=== PATIENT | male | born 1940 | race Caucasian/White ===

== ENCOUNTER 2017-07-10 08:22 | Day surgery (SDC) | payer MEDICARE, BC ==
[2017-07-10] MEDS ORDERED: CEFAZOLIN 2 Gram 2 GM/50 ML BAG IVPB ONE (08:23)
[2017-07-10] MEDS ORDERED: ACETAMINOPHEN 1,000 MG/100 ML BTL IV ONE (08:23)
[2017-07-10] MEDS ORDERED: SEVOFLURANE 250 ML INH ONE (08:23)
[2017-07-10] MEDS ORDERED: LIDOCAINE 2% MDV (20MG/ML) 20ML VIAL IV ONE (08:23)
[2017-07-10] MEDS ORDERED: KETOROLAC 30 MG/ML VIAL IVP ONE (08:23)
[2017-07-10] MEDS ORDERED: PROPOFOL 10 MG/ML VIAL IV ONE (08:23)
[2017-07-10] MEDS ORDERED: BUPIVACAINE 0.25% W/EPI MPF 30ML VIAL IVP ONE (08:23)
--- NOTE | 2017-07-11 10:30 | Operative Note ---
DATE OF SURGERY: 07/10/2017 Surgeon: Roberto Carlos Hansen DO PREOPERATIVE DIAGNOSES: 1. Torn medial meniscus of the left knee. 2. Chondromalacia of the left knee. OPERATION: 1. Arthroscopic partial medial meniscectomy, left knee. 2. Arthroscopic chondroplasty of the trochlea, left knee. DESCRIPTION OF PROCEDURE: This 76-year-old male was taken to the operating room and placed in the supine position on the operating room table were general anesthesia was induced. The left lower extremity was elevated. It was exsanguinated and the tourniquet inflated to 300 mmHg. Arthroscopic knee willingham applied. The left knee prepped with Hibiclens and draped in the usual sterile fashion. An inferolateral portal was established for the 4 mm arthroscope. Initial evaluation of the joint demonstrated normal appearance of the suprapatellar pouch. 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 This lesion was about 2 x 1.5 cm. This was a severe grade 3 damage. Chondroplasty was performed to stabilize the loops flaps of articular cartilage in the trochlea and then it was re-probed and confirmed to be stable. The medial compartment was entered and the medial femoral condyle appeared nl. Most of the meniscus appeared normal except for a vertical tear of the root of the meniscus. Utilizing the basket forceps, we resected unstable fragments of this root and then smoothed and contoured with the rotating shaver. We re-probed it and it appeared to be entirely stable. The intracondylar notch was examined and found to be normal. The lateral compartment was entered and probing of the lateral compartment did not reveal any pathology with a normal lateral meniscus and normal articular cartilage in the lateral compartment. The joint was copiously irrigated and suctioned. The instruments were removed. The portals infiltrated with 0.25% Marcaine with epinephrine. Sterile dressings applied. Tourniquet and knee willingham released. The patient was taken to the recovery room in satisfactory condition. GROSS PATHOLOGY: This patient had a grade 3 lesion of the articular cartilage in the trochlea being about 2 x 1.5 cm. In addition, a root tear of the posterior horn of the medial meniscus was present. This was resected and found to be stable. CC: JOHNSON Cisneros
== END 2017-07-10 12:00 | disposition home or self-care (01) ==
LOC: SUR 08:22
PROVIDERS: ATTEND Orthopaedic Surgery
DX: M23.222 Derangement of posterior horn of medial meniscus due to old tear or injury, left knee (principal); I10 Essential (primary) hypertension; I48.91 Unspecified atrial fibrillation; Z79.01 Long term (current) use of anticoagulants; Z95.2 Presence of prosthetic heart valve; Z72.0 Tobacco use
CPT/HCPCS: 29881; 01400; J1885; J0690

== ENCOUNTER 2018-05-07 13:56 | Emergency (ER) | payer MEDICARE ==
--- NOTE | 2018-05-07 14:29 | Emergency Department Record ---
History of Present Illness - General Chief Complaint: Slurred speech Stated Complaint: THINKS HAD A STOKE Time Seen by Provider: 05/07/18 14:14 Source: Patient Mode of Arrival: Ambulatory Limitations: No limitations - History of Present Illness Initial Comments: The patient is here due to a 21 hour hx of L facial drooping and slightly slurred speech since yesterday. He also has had mild visual changes at times but denies any arm or leg numbness, weakness or any balance issues. The patient is on Xarelto for cardiac conditions and does have a hx of CAD and HTN. Onset/Timin -: Days(s) Place: Home Severity: Mild - [place] Coma Scale Eye Response: (4) Open spontaneously Motor Response: (6) Obeys commands Verbal Response: (5) Oriented [place] Total: 15 - Symptoms of Stroke Onset of Symptoms Date: 05/06/18 Onset of Symptoms Time: 16:30 Symptom Onset Unknown: No Symptoms of stroke: Slurred Speech - Related Data Allergies/Adverse Reactions: Allergies Allergy/AdvReac Type Severity Reaction Status Date / Time No Known Allergies Allergy HYPERSENSIT Verified 05/07/18 14:09 IVITY Travel Screening - Travel/Exposure Within Last 30 Days Have you traveled within the last 30 days?: No - Travel/Exposure Within Last Year Have you traveled outside the [place] in the last year?: No - Additonal Travel Details Have you been exposed to anyone with a communicable illness?: No - Travel Symptoms Symptom Screening: None Review of Systems Constitutional: Denies: Chills, Fever Eyes: Denies: Eye discharge ENT: Denies: Congestion Respiratory: Denies: Cough, Dyspnea Cardiovascular: Denies: Arrhythmia, Chest pain Endocrine: Denies: Fatigue Gastrointestinal: Denies: Diarrhea, Vomiting Genitourinary: Denies: Dysuria Musculoskeletal: Denies: Arthralgia Past Medical History - SOCIAL HISTORY Smoking Status: Current every day smoker Alcohol Use: None Drug Use: None - RESPIRATORY Hx Respiratory Disorders: Yes Comment:: Smoker 1ppd x 60 years, SOB w/ strenous activity, running - CARDIOVASCULAR Hx Cardio Disorders: Yes Hx Abnormal EKG: Yes (Atrial fib on Xarelto) Hx Hypertension: Yes (Controlled with meds) 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 - NEURO Hx Neuro Disorders: Yes Hx Headaches: Yes (occasional) - GI Hx GI Disorders: No - Hx Genitourinary Disorders: Yes Hx Bladder Problem: Yes (Frequency) - ENDOCRINE Hx Endocrine Disorders: No - MUSCULOSKELETAL Hx Musculoskeletal Disorders: Yes Hx Arthritis: Yes (shoulders) - PSYCH Hx Psych Problems: No - HEMATOLOGY/ONCOLOGY Hx Hematology/Oncology Disorders: No Family Medical History Any Significant Family History?: Yes Hx Cancer: Father, Mother, Brother/Sister, Grandparents Hx Stroke: Grandparents Physical Exam - General General Appearance: Alert, Oriented x3, Cooperative, No acute distress - Head Head exam: Atraumatic, Normocephalic, Normal inspection - Eye Eye exam: Normal appearance, PERRL, EOMI - ENT Throat exam: Normal inspection. negative: Tonsillar erythema, Tonsillar exudate - Neck Neck exam: Normal inspection, Full ROM. negative: Tenderness - Respiratory Respiratory exam: Normal lung sounds bilaterally. negative: Respiratory distress - Cardiovascular Cardiovascular Exam: Regular rate, Normal rhythm, Normal heart sounds - GI/Abdominal GI/Abdominal exam: Soft, Normal bowel sounds. negative: Tenderness - Extremities Extremities exam: Normal inspection, Full ROM, Normal capillary refill. negative: Tenderness - Neurological Neurological exam: Alert, Motor sensory deficit (There is a mild L facial droop and mild dysarthria.), Normal gait, Oriented X3, Other (Neg Drift and Rhomberg exams.). negative: Abnormal gait, Altered - Skin Skin exam: negative: Rash Course Vital Signs 05/07/18 14:03 Temperature 98.2 F Pulse Rate 81 Respiratory 16 Rate Blood Pressure 145/94 Pulse Ox 95 - Reevaluation(s) Reevaluation #1: The patient is doing very well at this time. He denies any new symptoms and clearly has had no arm or leg numbness or weakness. I did discuss the case with Dr. Thao at [facility] and he does accept the patient as a direct admission to [facility]. 05/07/18 15:52 Medical Decision Making - Data Complexity MDM Data: Labs Ordered and/or Reviewed, X-Ray Ordered and/or Reviewed, EKG Ordered and/or Reviewed - Lab Data Result diagrams: 05/07/18 14:50 05/07/18 14:50 - EKG Data -: EKG Interpreted by Me EKG: No Acute Changes, Unchanged From Previous - Radiology Data Radiology results: Report reviewed (Head CT: Neg per Rad.) Disposition Disposition: Transfer Clinical Impression: Facial droop Disposition: Acute Care Hospital Transfer Transfer To: [facility] Reason For Transfer: Stroke team Accepting Physician: Master Time Discussed w/Accepting Physician: 15:53 Condition: (2) Stable Forms: Patient Portal Access Time of Disposition: 15:53 Quality - Quality Measures Quality Measures: N/A - Blood Pressure Screening View Details: Yes Does Patient Have Any of the Following: Active Dx of HTN Blood Pressure Classification: Hypertensive Reading Systolic Measurement: 145 Diastolic Measurement: 94 Screening for High Blood Pressure: Patient Exclusion, Hx of HTN [[id number]]
[2018-05-07 15:02] LABS: BASO % 0.2 % (0-6); EOS % 3.7 % (0-6); GRAN % 65.4 % (47-80); HEMATOCRIT 45.1 % (42.0-52.0); HEMOGLOBIN 14.7 gm/dl (14.0-18.0); LYMPH % 23.3 % (16-45); MEAN CELL VOLUME 90.7 fl (81-97); MEAN CORPUSCULAR HEMOGLOBIN 29.6 pg (27-33); MEAN CORPUSCULAR HGB CONC 32.6 g/dl (32-36); MEAN PLATELET VOLUME 11.5 fl (7.4-10.4); MONO % 7.4 % (0-9); PLATELET COUNT 215 K/uL (130-400); RED BLOOD COUNT 4.97 M/uL (4.40-5.70); RED CELL DISTRIBUTION WIDTH 13.7 % (11.5-14.5); WHITE BLOOD COUNT W/O DIFF 8.1 K/uL (4.2-12.2)
[2018-05-07 15:10] LABS: BLOOD UREA NITROGEN 30 mg/dL (8-23); CREATININE 1.4 mg/dL (0.7-1.2); EST GLOMERULAR FILTRATION RATE 53 mL/min
[2018-05-07 15:13] LABS: GLUCOSE,RANDOM 104 mg/dL (74-109)
[2018-05-07 15:14] LABS: INR 1.2; PARTIAL THROMBOPLASTIN TIME 32.4 SECONDS (24.5-39.1); PROTHROMBIN TIME (PATIENT) 11.7 SECONDS (9.5-12.1)
[2018-05-07 15:16] LABS: CREATINE PHOSPHOKINASE 90 U/L (39-308)
[2018-05-07 15:18] LABS: CKMB 3.1 ng/mL (<6.73)
[2018-05-07] MEDS ORDERED: ASPIRIN 325 MG TABLET PO ONE (15:51)
--- NOTE | 2018-05-11 12:14 | CT SCAN REPORT ---
EXAM: CT OF THE BRAIN WITHOUT CONTRAST HISTORY: RIGHT FACIAL DROOP. TECHNIQUE: Sequential axial images were obtained from the foramen magnum to the vertex without contrast administration. FINDINGS: The brain volume is normal. No large territorial infarct, hemorrhage , mass effect, or midline shift. No extraaxial fluid collection. The orbits. paranasal sinuses and mastoid air cells are normal. IMPRESSION: NO INTRACRANIAL ABNORMALITY IS APPRECIATED. JOB NUMBER: [id number] MTDD
== END 2018-05-07 17:33 | disposition short-term general hospital (02) ==
LOC: ER 13:56
DX: I63.9 Cerebral infarction, unspecified (principal); R47.02 Dysphasia; I10 Essential (primary) hypertension; I48.91 Unspecified atrial fibrillation; Z79.01 Long term (current) use of anticoagulants; F17.210 Nicotine dependence, cigarettes, uncomplicated
CPT/HCPCS: 70450; 80048; 82550; 82553; 84484; 85025; 85610; 85730; 93005; 93010; 99285